=== PATIENT | male | born 1975 | race Caucasian/White ===

== ENCOUNTER 2020-05-10 18:54 | Emergency (ER) | payer BC, OTHER, SELFPAY ==
--- NOTE | ~2020-05-10 | XR_ITS ---
EXAMINATION: XR chest 2V DATE: 05/10/2020 19:35 INDICATION: Cough TECHNIQUE: PA and lateral views of the chest are obtained. COMPARISON: 01/13/2018 FINDINGS: The lungs are free of acute opacities. There is no pleural effusion or pneumothorax. The ca rdiomediastinal silhouette is normal. There is mild thoracic spondylosis. IMPRESSION: 1. No acute cardiopulmonary abnormality. Reviewed, dictated and finalized at location A. [employer]
--- NOTE | 2020-05-10 19:14 | ED.URI ---
HPI - URI/Sore Throat General Chief Complaint: Upper Respiratory Infection Stated Complaint: Headache/Cough/Vomitting Time Seen by Provider: 05/10/20 19:14 Source: patient Mode of arrival: ambulatory Limitations: no limitations History of Present Illness HPI Narrative: German Hallman is a 45 yo male with PMH of testicular cancer, asthma, penile mplant, [facility] with cough and body aches and headache that started yesterday he is taking only ibuprofen thus far for body aches states that his body aches are 6 out of 10, headache is tolerable, sometimes has spastic cough Related Data Home Medications Medication Instructions Recorded Confirmed albuterol sulfate 2.5 mg INHALATION Q4H PRN 05/10/20 05/10/20 Allergies Allergy/AdvReac Type Severity Reaction Status Date / Time No Known Allergies Allergy Unverified 05/10/20 19:30 Review of Systems Review of Systems: Narrative: CONSTITUTIONAL: Denies fever, chills, sweats. He has body aches EYES: Denies visual changes, redness, discharge. ENT: Denies rhinorrhea, has congestion, has sore throat, otalgia. CARDIOVASCULAR: Denies chest pain, palpitations, edema. RESPIRATORY: Denies dyspnea, wheezing, has cough GASTROINTESTINAL: Denies abdominal pain, nausea, vomiting, diarrhea. GENITOURINARY: Denies dysuria, hematuria, abnormal discharge SKIN: Denies rash or itching. NEUROLOGIC: Denies numbness, or focal weakness. PSYCHIATRIC: Denies anxiety or depression. [facility] Past Medical History Medical History (Updated 05/10/20 @ 19:44 by Sridevi Negrete CNP) Asthma Testicular cancer Surgical History Surgical History History of penile implant Family History Family History Other Hypertension Social History Social History (Updated 05/10/20 @ 19:38 by Sridevi Negrete CNP) Alcohol intake: current Substance use: current Substance use type: marijuana Comments At time of signature, I agree with nursing past medical, surgical, social and family history. There is no relevant family history pertinent to the presenting complaint. Blood pressure elevated this visit this patient is coughing and is ill with viral syndrome he is to call his doctor in the next day or 2 Exam Narrative: Exam Narrative: GENERAL: This is a well-nourished, well-developed patient, in mild distress. Pulse ox 99 HEAD: normocephalic, atraumatic. EYES: Sclera clear/white. Vision is grossly intact. EARS: External ears normal, auditory canals clear and without drainage, TMs normal without perforation. Hearing grossly intact. NOSE: External nose normal with nasal discharge, nares without redness, no rhinorrhea. THROAT: Mucous membranes moist, posterior pharynx erythema NECK: Neck supple, non-tender CARDIOVASCULAR: Regular rate and rhythm without murmurs, gallops, or rubs. RESPIRATORY: Diminished to auscultation. Breath sounds equal bilaterally. No wheezes, rales, or rhonchi. GASTROINTESTINAL: Abdomen soft, non-tender, SKIN: warm, intact with no suspicious lesions or rash, good texture and turgor. NEURO: awake, alert, and oriented to person, place and time. There were no obvious focal neurologic abnormalities. Steady gait EXTREMITIES: Normal range of motion. BACK: Nontender without deformity Course Course Emergency Course: Patient came to [facility] for evaluation of upper respiratory symptoms that started yesterday-includes cough myalgia headache general listlessness Rapid Covid test negative; PCR sent To be quarantine until test results are returned Started on prednisone Zyrtec cough medicine encouraged to continue use of albuterol and nebulizer machine Chest x-ray done-no acute cardiopulmonary abnormality Work excuse given Vital Signs Vital signs: Vital Signs Temperature 97.8 F 05/10/20 19:18 Pulse Rate 77 05/10/20 19:18 Respiratory Rate 20 05/10/20 19:18 Blood Pressure 142/8
[2020-05-10 19:18] VITALS: BP 142/88; PULSE 77; RESP 20; TEMP 36.6; O2SAT 99
[2020-05-13 18:03] LABS: SARS-CoV-2 RNA PCR Negative
== END 2020-05-10 20:05 | disposition home or self-care (01) ==
PROVIDERS: Emergency Provider Nurse Practitioner; PCP Nurse Practitioner Family
DX: R05 Cough (principal); M79.10 Myalgia, unspecified site; J06.9 Acute upper respiratory infection, unspecified; Z20.822 Contact with and (suspected) exposure to COVID-19; J45.909 Unspecified asthma, uncomplicated; Z85.47 Personal history of malignant neoplasm of testis
CPT/HCPCS: 71046; 87426; 99213; C9803; G0463; U0003; U0005